=== PATIENT | male | born 1975 | race Caucasian/White ===

== ENCOUNTER 2024-07-10 05:55 | Emergency (ER) | payer MEDICARE ==
[2024-07-10] MEDS: Sodium Chloride 0.9% 1,000 ML IV SCH ×2 (06:42→08:22)
[2024-07-10] MEDS: Ondansetron 4 MG/2 ML SDV IVPUSH ONE (06:51)
[2024-07-10] MEDS: Morphine 4 MG/ML VIAL IVPUSH ONE ×2 (06:53→08:23)
[2024-07-10] MEDS: Ondansetron 4 MG/2 ML SDV ONE (06:57)
[2024-07-10 07:07] LABS: BASOPHILS ABSOLUTE AUTO 0.02 K/uL (0.02-0.10); BASOPHILS PERCENT AUTO 0.3 % (0.0-0.5); EOSINOPHILS ABSOLUTE AUTO 0.04 K/uL (0.04-0.40); EOSINOPHILS PERCENT AUTO 0.5 % (1.0-5.0); HEMATOCRIT 41.4 % (40.0-54.0); HEMOGLOBIN 14.4 g/dL (13.0-18.0); LYMPHOCYTES ABSOLUTE AUTO 1.15 K/uL (1.50-4.00); LYMPHOCYTES PERCENT AUTO 14.6 % (20.0-40.0); MEAN CORPUSCULAR HEMOGLOBIN 33.9 pg (27.0-32.0); MEAN CORPUSCULAR HGB CONC 34.8 g/dL (31.0-35.0); MEAN CORPUSCULAR VOLUME 97 fL (76-96); MEAN PLATELET VOLUME 11.4 fL (6.0-10.0); MONOCYTES ABSOLUTE AUTO 0.69 K/uL (0.20-0.80); MONOCYTES PERCENT AUTO 8.7 % (3.0-10.0); NEUTROPHILS ABSOLUTE AUTO 5.99 K/uL (2.00-7.50); NEUTROPHILS PERCENT AUTO 75.9 % (45.0-70.0); PLATELET COUNT,PLT 179 K/uL (150-400); RED BLOOD CELL COUNT 4.25 M/uL (4.50-6.50); RED CELL DISTRIBUTION WIDTH 12.3 % (11.0-16.0); WHITE BLOOD CELL COUNT,WBC 7.9 K/uL (4.0-11.0)
[2024-07-10 07:19] LABS: A/G RATIO 1.2 (0.8-2.0); ALBUMIN 3.8 g/dL (3.4-5.0); BILIRUBIN TOTAL 1.7 mg/dL (0.0-1.0); BUN/CREATININE RATIO 15.1 (6-25); CALCIUM 8.6 mg/dL (8.5-10.1); CARBON DIOXIDE,CO2 27.7 mmol/L (21.0-32.0); CREATININE 0.93 mg/dL (0.70-1.30); EST CRCL DRUG DOSING (CG) 107.78 mL/min; POTASSIUM,K 3.7 mmol/L (3.5-5.1)
[2024-07-10] MEDS ORDERED: Sodium Chloride 0.9% 10 ML Syringe FLUSH ONE (08:00)
[2024-07-10] MEDS: Iopamidol 612 MG/ML 100 ML Bottle IV SCH (08:15)
[2024-07-10] MEDS: Sodium Chloride 0.9% 50 ML SDV FLUSH ONE (08:15)
[2024-07-10] MEDS: Morphine 4 MG/ML VIAL ONE (08:25)
[2024-07-10 08:32] LABS: APPEARANCE,URINE CLEAR (CLEAR); COLOR,URINE YELLOW; GLUCOSE,URINE NEGATIVE (NEGATIVE); KETONES,URINE 15 mg/dL (NEGATIVE); PH,URINE 6.5 (5.0-8.0); PROTEIN,URINE NEGATIVE (NEGATIVE)
[2024-07-10 08:33] LABS: BILIRUBIN,URINE NEGATIVE (NEGATIVE); LEUKOCYTE ESTERASE,URINE NEGATIVE (NEGATIVE); NITRITE,URINE NEGATIVE (NEGATIVE); OCCULT BLOOD,URINE NEGATIVE (NEGATIVE); UROBILINOGEN,URINE 0.2 E.U./dL (0.2-1.0)
[2024-07-10] MEDS: HYDROmorphone 2 MG/ML Syringe IVPUSH ONE (09:21)
[2024-07-10] MEDS: GI Cocktail Oral Solution 30 ML PO ONE (09:33)
[2024-07-10] MEDS: HYDROmorphone 2 MG/ML Syringe ONE (10:01)
== END 2024-07-10 09:58 | disposition home or self-care (01) ==
LOC: LB.ED 05:55
DX: K85.90 Acute pancreatitis without necrosis or infection, unspecified (principal); Z87.891 Personal history of nicotine dependence; Z88.0 Allergy status to penicillin
CPT/HCPCS: 36415; 74177; 80053; 81003; 85025; 96361; 96374; 96375; 96376; 99284; 99284-25; A9270-GY; J1171; J2270; J2405; J3490; J7030; Q9967

== ENCOUNTER 2024-11-19 16:26 | Emergency (ER) | payer MEDICARE ==
[2024-11-19 16:45] LABS: HEMATOCRIT 39.5 % (40.0-54.0); HEMOGLOBIN 13.9 g/dL (13.0-18.0); MEAN CORPUSCULAR HEMOGLOBIN 33.1 pg (27.0-32.0); MEAN CORPUSCULAR HGB CONC 35.2 g/dL (31.0-35.0); MEAN PLATELET VOLUME 10.8 fL (6.0-10.0); RED BLOOD CELL COUNT 4.2 M/uL (4.50-6.50); RED CELL DISTRIBUTION WIDTH 11.6 % (11.0-16.0)
[2024-11-19 17:26] LABS: A/G RATIO 1.2 (0.8-2.0); ALBUMIN 3.7 g/dL (3.4-5.0); ANION GAP 12.4 mmol/L (5.0-15.0); BILIRUBIN TOTAL 0.5 mg/dL (0.0-1.0); BUN/CREATININE RATIO 13.4 (6-25); CALCIUM 8.7 mg/dL (8.5-10.1); CREATININE 0.82 mg/dL (0.70-1.30); EST CRCL DRUG DOSING (CG) 120.92 mL/min; POTASSIUM,K 3.4 mmol/L (3.5-5.1); PROTEIN TOTAL,TP 6.9 g/dL (6.4-8.2); TSH ULTRASENSITIVE 0.396 uIU/mL (0.358-3.740)
[2024-11-19] MEDS: Iopamidol 612 MG/ML 100 ML Bottle IV SCH (17:35)
[2024-11-19] MEDS: Sodium Chloride 0.9% 50 ML SDV FLUSH ONE (17:35)
[2024-11-19 18:05] LABS: AMPHETAMINES SCREEN, URINE NEGATIVE (NEGATIVE); BARBITURATE SCREEN,URINE NEGATIVE (NEGATIVE); BENZODIAZEPINES SCREEN,URINE NEGATIVE (NEGATIVE); METHADONE SCREEN, URINE NEGATIVE (NEGATIVE); METHAMPHETAMINES SCREEN, URINE NEGATIVE (NEGATIVE); OXYCODONE SCREEN,URINE POSITIVE (NEGATIVE); THC SCREEN,URINE 50 NG/ML NEGATIVE (NEGATIVE)
[2024-11-19] MEDS: Sodium Chloride 0.9% 1,000 ML IV SCH (19:24)
[2024-11-19] MEDS: Morphine 4 MG/ML VIAL IVPUSH ONE (20:58)
[2024-11-19] MEDS: Ketorolac 15 MG/ML SDV IVPUSH ONE (22:34)
[2024-11-20] MEDS: Morphine 4 MG/ML VIAL IVPUSH ONE ×2 (01:40→06:28)
[2024-11-20] MEDS: Ibuprofen 400 MG Tab PO ONE (09:43)
[2024-11-20] MEDS: oxyCODONE 5 MG Tab PO ONE (10:16)
[2024-11-20] MEDS: Acetaminophen 325 MG Tab PO ONE (10:57)
== END 2024-11-20 10:40 ==
LOC: LB.ED 16:26
DX: R45.851 Suicidal ideations (principal); F10.920 Alcohol use, unspecified with intoxication, uncomplicated; K21.9 Gastro-esophageal reflux disease without esophagitis; Z01.812 Encounter for preprocedural laboratory examination; Z86.16 Personal history of COVID-19; Z90.49 Acquired absence of other specified parts of digestive tract; Z79.899 Other long term (current) drug therapy; Z79.891 Long term (current) use of opiate analgesic; Z88.0 Allergy status to penicillin
CPT/HCPCS: 36415; 70450; 70491; 72125; 80053; 80307; 82947; 84443; 85027; 96361; 96374; 96375; 96376; 99285; 99285-25; A0425; A0429; A9270-GY; G0480; J1885; J2270; J3360; J3490; Q9967

== ENCOUNTER 2025-05-03 21:24 | Emergency (ER) | payer MEDICARE ==
[2025-05-03] MEDS ORDERED: Furosemide 40 MG/4 ML VIAL IVPUSH ONE (22:17)
[2025-05-03] MEDS: Ketorolac 30 MG/ML SDV IM ONE (23:25)
== END 2025-05-03 23:35 | disposition home or self-care (01) ==
LOC: LB.ED 21:24
DX: S91.312A Laceration without foreign body, left foot, initial encounter (principal); S49.92XA Unspecified injury of left shoulder and upper arm, initial encounter; K21.9 Gastro-esophageal reflux disease without esophagitis; Z79.899 Other long term (current) drug therapy; Z88.5 Allergy status to narcotic agent; Z88.0 Allergy status to penicillin; W17.89XA Other fall from one level to another, initial encounter
CPT/HCPCS: 73030; 73060; 73630; 96372; 99283; J1885

== ENCOUNTER 2025-08-25 16:10 | Emergency (ER) | payer MEDICARE ==
[2025-08-25] MEDS ORDERED: Sodium Chloride 0.9% 10 ML Syringe FLUSH PRN (16:34)
[2025-08-25] MEDS: Ondansetron 4 MG/2 ML SDV IVPUSH SCH (16:44)
[2025-08-25] MEDS: GI Cocktail Oral Solution 30 ML PO STA (16:48)
[2025-08-25] MEDS: Iopamidol 612 MG/ML 100 ML Bottle IV PRN (17:00)
[2025-08-25] MEDS: Sodium Chloride 0.9% 50 ML SDV FLUSH SCH (17:00)
[2025-08-25 17:05] LABS: BASOPHILS ABSOLUTE AUTO 0.03 K/uL (0.02-0.10); BASOPHILS PERCENT AUTO 0.4 % (0.0-0.5); EOSINOPHILS ABSOLUTE AUTO 0.05 K/uL (0.04-0.40); EOSINOPHILS PERCENT AUTO 0.6 % (1.0-5.0); LYMPHOCYTES ABSOLUTE AUTO 1.77 K/uL (1.50-4.00); LYMPHOCYTES PERCENT AUTO 22.6 % (20.0-40.0); MEAN PLATELET VOLUME 10.0 fL (6.0-10.0); MONOCYTES ABSOLUTE AUTO 0.57 K/uL (0.20-0.80); MONOCYTES PERCENT AUTO 7.3 % (3.0-10.0); NEUTROPHILS ABSOLUTE AUTO 5.42 K/uL (2.00-7.50); NEUTROPHILS PERCENT AUTO 69.1 % (45.0-70.0); PLATELET COUNT,PLT 220 K/uL (150-400); RED BLOOD CELL COUNT 4.92 M/uL (4.50-6.50); RED CELL DISTRIBUTION WIDTH 13.2 % (11.0-16.0); WHITE BLOOD CELL COUNT,WBC 7.8 K/uL (4.0-11.0)
[2025-08-25 17:21] LABS: LACTIC ACID 2.1 mmol/L (0.4-2.0)
[2025-08-25 17:30] LABS: A/G RATIO 1.1 (0.8-2.0); ALANINE AMINOTRANSFERASE,ALT 56.0 U/L (12-78); BILIRUBIN TOTAL 0.5 mg/dL (0.0-1.0); BLOOD UREA NITROGEN,BUN 10.0 mg/dL (8-26); CARBON DIOXIDE,CO2 22.0 mmol/L (21.0-32.0); CHLORIDE,CL 100.0 mmol/L (98-107); CREATININE 0.97 mg/dL (0.70-1.30); EST CRCL DRUG DOSING (CG) 102.22 mL/min; ESTIMATED GFR 96.0 mL/min (>60); GLUCOSE RANDOM 144.0 mg/dL (74-100); POTASSIUM,K 3.9 mmol/L (3.5-5.1); PROTEIN TOTAL,TP 7.5 g/dL (6.4-8.2); SODIUM,NA 136.0 mmol/L (136-145)
[2025-08-25 17:45] LABS: ASPARTATE AMNIOTRANSFERASE,AST 84.0 U/L (15-37)
[2025-08-25 18:09] LABS: APPEARANCE,URINE CLEAR (CLEAR); GLUCOSE,URINE NEGATIVE (NEGATIVE); OCCULT BLOOD,URINE NEGATIVE (NEGATIVE)
[2025-08-25] MEDS ORDERED: Ondansetron 4 MG Tab.DIS ONE (18:30)
[2025-08-25] MEDS ORDERED: Acetaminophen/HYDROcodone 325-5 MG Tab ONE (18:30)
== END 2025-08-25 18:45 | disposition home or self-care (01) ==
LOC: LB.ED 16:10
DX: K85.20 Alcohol induced acute pancreatitis without necrosis or infection (principal); K21.9 Gastro-esophageal reflux disease without esophagitis; I25.2 Old myocardial infarction; Z79.899 Other long term (current) drug therapy; Z88.5 Allergy status to narcotic agent; Z88.0 Allergy status to penicillin
CPT/HCPCS: 36415; 74177; 80053; 81003; 83605; 83690; 85025; 86140; 96361; 96374; 96375; 96376; 99284; A9270-GY; J2270; J2405; J2470; J7030; Q0162; Q9967